=== PATIENT | female | born 1985 | race Caucasian/White ===

== ENCOUNTER 2017-10-03 05:43 | Inpatient (IN) | payer BC ==
[2017-10-03 06:17] VITALS: BMI 28.4
[2017-10-03] MEDS ORDERED: Acetaminophen 500 MG TAB PO PRN (06:24)
[2017-10-03] MEDS ORDERED: Diphenoxylate HCl/Atropine Tablet PO PRN ×2 (06:25→06:26)
[2017-10-03] MEDS ORDERED: Butorphanol Tartrate 1 MG/ML VIAL SLOW IVP PRN (06:25)
[2017-10-03] MEDS ORDERED: HYDROcodone/Acetaminophen 5/325 mg Tablet PO PRN ×2 (06:26→06:27)
[2017-10-03] MEDS ORDERED: Ibuprofen 800 MG TAB PO PRN (06:27)
[2017-10-03] MEDS ORDERED: Lidocaine 1% (PF) 30 ML VIAL SC PRN (06:28)
[2017-10-03] MEDS ORDERED: Misoprostol 200 MCG TAB PR PRN (06:28)
[2017-10-03] MEDS ORDERED: NS / Oxytocin 40 units/1000ml 1,000 ML IV PRN (06:29)
[2017-10-03] MEDS ORDERED: Ondansetron HCl/PF 4 MG/2 ML Vial IVP PRN ×3 (06:29→15:17)
[2017-10-03] MEDS ORDERED: Lactated Ringer's 1,000 ML IV SCH (06:30)
[2017-10-03] MEDS ORDERED: Promethazine HCl 25 MG/ML VIAL IM PRN ×2 (06:30→14:22)
[2017-10-03] MEDS ORDERED: NS w/ Oxytocin 10 units 500 ML IV SCH (06:30)
[2017-10-03] MEDS ORDERED: Docusate 100 MG CAP PO PRN (06:31)
[2017-10-03 06:48] LABS: Hemoglobin 11.4 g/dL (12.0-16.0); Mean Corpuscular HGB CONC 34.4 g/dL (32.0-36.0); Mean Corpuscular Hemoglobin 31.4 pg (27.0-31.0); Mean Corpuscular Volume 91.2 fL (78.0-98.0); Mean Platelet Volume 8.1 fL (7.4-10.4); Platelet Count 270 thou/uL (130-400); RBC Distribution Width 11.7 % (11.5-14.5); Red Blood Cell (RBC) Count 3.62 mill/uL (4.20-5.40); White Blood Cell (WBC) Count 9.2 thou/uL (4.8-10.8)
[2017-10-03 07:24] LABS: Syphilis Antibody Nonreactive (Nonreactive); Syphilis Antibody Index 0.05 S/CO (<1.00 Non-Reactive)
[2017-10-03 07:25] LABS: HBSAg Index 0.22 S/CO (0-0.99); Hep B Surf Ag Non-Reactive S/CO (NonReactive)
[2017-10-03] MEDS ORDERED: DISCONTINUE ALL PREVIOUS NARCOTICS FS SCH (13:00)
[2017-10-03] MEDS ORDERED: Bupivacaine 0.5% 20 ML, fentaNYL Citrate/PF 400 MCG in Sodium Chloride 0.9% 72 ML EPIDURAL SCH (13:00)
[2017-10-03] MEDS ORDERED: Lactated Ringer's 500 ML IV PRN (14:22)
[2017-10-03] MEDS ORDERED: diphenhydrAMINE 50 MG/ML VIAL IVP PRN (14:22)
[2017-10-03] MEDS ORDERED: Naloxone HCl 0.4 mg/ml Vial IVP PRN ×2 (14:22)
[2017-10-03] MEDS ORDERED: Acetaminophen 325 MG TAB PO PRN (14:22)
[2017-10-03] MEDS ORDERED: Eucerin (Mineral Oil/Petrolatum,White) 30 gm Jar TOP PRN (14:22)
[2017-10-03] MEDS ORDERED: ePHEDrine/0.9% NaCl/PF SYRINGE 50 mg/10 ml SLOW IVP PRN (14:22)
[2017-10-03] MEDS ORDERED: fentaNYL Citrate/PF 400 MCG, Bupivacaine 0.5% 20 ML in Sodium Chloride 0.9% 72 ML EPIDURAL SCH (14:30)
[2017-10-03] MEDS ORDERED: Communication Order-Pharmacy FS SCH (14:30)
[2017-10-03] MEDS: NS / Oxytocin 40 units/1000ml 1,000 ML IV SCH ×2 (14:47→19:50)
[2017-10-03] MEDS ORDERED: Acetaminophen/Codeine 30-300mg Tablet PO PRN ×2 (15:17)
[2017-10-03] MEDS ORDERED: diphenhydrAMINE 25 MG CAP PO PRN (15:17)
[2017-10-03] MEDS ORDERED: Preparation H Ointment 28 GM TUBE PR PRN (15:17)
[2017-10-03] MEDS ORDERED: Benzocaine/Menthol 20-0.5% 60 ML CAN TOP PRN (15:17)
[2017-10-03] MEDS ORDERED: Adacel (T-DAP) 0.5 ML VIAL IM ONE (15:17)
[2017-10-03] MEDS ORDERED: Zolpidem Tartrate 5 MG TAB PO PRN (15:17)
[2017-10-03] MEDS ORDERED: Milk Of Magnesia 30 ML UDCUP PO PRN (15:17)
[2017-10-03] MEDS ORDERED: Bisacodyl 10 MG SUPP PR PRN (15:17)
[2017-10-03] MEDS ORDERED: Lanolin Ointment 7 GM TUBE TOP PRN (15:17)
[2017-10-03] MEDS: Ferrous Sulfate 325 MG TAB PO SCH (18:35)
[2017-10-03] MEDS: Ibuprofen 800 MG TAB PO SCH (21:09)
[2017-10-03] MEDS: Docusate Calcium (SURFAK) 240 MG CAP PO SCH (21:09)
[2017-10-04] MEDS: Ibuprofen 800 MG TAB PO SCH ×2 (04:44→14:15)
[2017-10-04 06:45] LABS: Hemoglobin 10.9 g/dL (12.0-16.0); Mean Corpuscular HGB CONC 33.5 g/dL (32.0-36.0); Mean Corpuscular Volume 92.7 fL (78.0-98.0); Mean Platelet Volume 8.4 fL (7.4-10.4); Platelet Count 264 thou/uL (130-400); RBC Distribution Width 11.9 % (11.5-14.5); Red Blood Cell (RBC) Count 3.52 mill/uL (4.20-5.40); White Blood Cell (WBC) Count 9.6 thou/uL (4.8-10.8)
[2017-10-04] MEDS: Ferrous Sulfate 325 MG TAB PO SCH (08:35)
[2017-10-04] MEDS ORDERED: Prenatal Vitamin 1 TAB PO SCH (09:00)
[2017-10-04] MEDS: Docusate Calcium (SURFAK) 240 MG CAP PO SCH (10:01)
[2017-10-04 11:47] VITALS: BP 113/62; TEMP 98.2
== END 2017-10-04 17:05 | disposition home or self-care (01) | DRG 775 ==
LOC: L&D 05:43 → 3SW 17:24
PROVIDERS: ADMIT Obstetrics & Gynecology; ATTEND Obstetrics & Gynecology
PROC: 10E0XZZ Delivery of Products of Conception, External Approach (ICD-10-PCS; principal; 2017-10-03)
DX: O40.3XX0 Polyhydramnios, third trimester, not applicable or unspecified (principal); Z3A.39 39 weeks gestation of pregnancy; Z37.0 Single live birth
CPT/HCPCS: 36415; 51702; 85027; 85461; 86780; 86850; 86900; 86901; 87340; 90384; 96372; J2001; J3010; J3490; J7050

== ENCOUNTER 2023-01-05 08:16 | Outpatient (CLI) | payer OTHER ==
[2023-01-05] MEDS ORDERED: Iopamidol 370 76% 100 ML VIAL ONE (13:35)
== END 2023-01-05 08:17 | disposition home or self-care (01) ==
LOC: BICCT 08:16
PROVIDERS: ATTEND Nurse Practitioner Family
DX: K58.9 Irritable bowel syndrome, unspecified (principal); R14.3 Flatulence; U09.9 Post COVID-19 condition, unspecified; F41.1 Generalized anxiety disorder
CPT/HCPCS: 74177; Q9967